=== PATIENT | female | born 1985 | race Caucasian/White ===

== ENCOUNTER 2019-06-01 11:27 | Emergency (ER) | payer MEDICAID ==
[~2019-06-01] VITALS: Ht 165.1 cm; Wt 51.3 kg
--- NOTE | 2019-06-01 11:57 | NUR ---
RECENT COUGHING NOTED POP IN THE R LOWER RIBS YESTERDAY RIB PAIN PAIN INCREASES W DEEP RESP per triage note pt walked in the luba pa at bed side
[2019-06-01] MEDS ORDERED: KETOROLAC 30 MG/1 ML ONE (11:59)
[2019-06-01] MEDS ORDERED: KETOROLAC 30 MG/1 ML IM ONE (12:00)
--- NOTE | 2019-06-01 12:05 | NUR ---
given toradol im per md order pt is resting in the gurney
[2019-06-01 13:21] VITALS: BP 114/74
--- NOTE | 2019-06-01 13:22 | NUR ---
report received from MATT Knott. pt a&o, resps even and unlabored. pt given IS with instructions, demonstrates appropriate use with inspiratory capacity of 1250mL. pt given dc instructions and script, educated regarding rx for robaxan. pt amb to dc desk with steady gait, all questions answered. nadn at dc.
== END 2019-06-01 13:22 | disposition home or self-care (01) ==
LOC: ED 13:10
DX: M94.0 Chondrocostal junction syndrome [Tietze] (principal)
CPT/HCPCS: 71101; 96372; 99283; J1885